=== PATIENT | male | born 1995 | race Caucasian/White ===

== ENCOUNTER 2020-08-25 11:00 | Emergency (ER) | payer BC ==
[2020-08-25] MEDS ORDERED: Cyclobenzaprine 10 MG Tab PO ONE (11:24)
[2020-08-25] MEDS ORDERED: Ketorolac 60 MG/2 ML SDV IM ONE (11:24)
--- NOTE | 2020-08-25 12:06 | CR ---
Lumbar spine: AP and lateral views of the lumbar spine were obtained. Comparison: No prior lumbar spine imaging is available. Vertebral body heights and disc spaces are maintained. Pedicles are intact. Visualized transverse and spinous processes are intact. Sacroiliac joints are within normal limits. Impression: 1. Nothing acute is seen on 2 view lumbar spine study. Diagnostic code #1
--- NOTE | 2020-08-25 12:41 | EDM.PDOC ---
ED HPI GENERAL MEDICAL PROBLEM - General Chief Complaint: Back Pain or Injury Stated Complaint: [facility] Time Seen by Provider: 08/25/20 11:06 Source of Information: Reports: Patient, RN Notes Reviewed History Limitations: Reports: No Limitations - History of Present Illness INITIAL COMMENTS - FREE TEXT/NARRATIVE: Patient is a 25-year-old male presenting to the emergency department with complaints of back spasms. He reports that yesterday he was doing squats at the gym and his third rep he explains a sharp stabbing pain in his back. He is unable to walk upright without having significant spasms in his back. Denies any history of chronic back pain. He received 1 mg of Dilaudid in route by [facility] and this did help his pain. Treatments [facility]: Reports: IV/IO, Other Medication(s) Other Treatments [facility]: 2 doses of 0.5mg IV dilaudid given by EMS [facility], 1mg PO ativan taken yesterda Lower Back Pain Score (Numeric/FACES): 4 - Related Data Allergies Allergy/AdvReac Type Severity Reaction Status Date / Time No Known Allergies Allergy Verified 08/25/20 11:12 Home Meds: Home Meds Cyclobenzaprine [Flexeril] 10 mg PO TID PRN #10 tab 08/25/20 [Rx] Naproxen [Naprosyn] 500 mg PO Q12HR 5 Days #10 tab 08/25/20 [Rx] Past Medical History Gastrointestinal History: Reports: Gastritis Neurological History: Reports: Concussion, Headaches, Chronic Psychiatric History: Reports: Addiction, Depression - Past Surgical History HEENT Surgical History: Reports: Oral Surgery Social & Family History - Tobacco Use Tobacco Use Status *Q: Current Every Day Tobacco User Years of Tobacco use: 5 Packs/Tins Daily: 1 - Caffeine Use Caffeine Use: Reports: Energy Drinks, Soda - Recreational Drug Use Recreational Drug Use: No ED ROS GENERAL - Review of Systems Review Of Systems: Comprehensive ROS is negative, except as noted in HPI. ED EXAM,LOWER BACK PAIN/INJURY - Physical Exam Exam: See Below Exam Limited By: No Limitations General Appearance: Alert, WD/WN, No Apparent Distress Respiratory/Chest: No Respiratory Distress, Lungs Clear, Normal Breath Sounds, No Accessory Muscle Use, Chest Non-Tender Cardiovascular: Normal Peripheral Pulses, Regular Rate, Rhythm, No Edema, No Gallop, No JVD, No Murmur, No Rub Back Exam: Normal Inspection, Full Range of Motion. No: Muscle Spasm, Paraspinal Tenderness, Vertebral Tenderness Neurological: Alert, Normal Mood/Affect, Normal Dorsiflexion, CN II-XII Intact, Normal Plantar Flexion, Normal Reflexes, No Motor/Sensory Deficits, Oriented x 3 Psychiatric: Normal Affect, Normal Mood Course - Vital Signs Last Recorded V/S: Last Vital Signs Temp 97.7 F 08/25/20 11:05 Pulse 90 08/25/20 11:05 Resp 14 08/25/20 11:05 BP 124/73 08/25/20 11:05 Pulse Ox 100 08/25/20 11:05 - Orders/Labs/Meds Meds: Medications Discontinued Medications Generic Name Dose Route Start Last Admin Trade Name [place] PRN Reason Stop Dose Admin Cyclobenzaprine HCl 10 mg 08/25/20 11:24 08/25/20 11:43 Cyclobenzaprine 10 Mg Tab PO 08/25/20 11:25 10 mg ONETIME ONE Administration Ketorolac Tromethamine 60 mg 08/25/20 11:24 08/25/20 11:45 Ketorolac 60 Mg/2 Ml Sdv IM 08/25/20 11:25 60 mg ONETIME ONE Administration - Re-Assessments/Exams Free Text/Narrative Re-Assessment/Exam: Patient is a 25-year-old male presenting to the emergency department with complaints of back spasms after injuring himself as "doing squats at the gym yesterday. He got 1 mg of Dilaudid in route by ambulance. On exam, he has no vertebral tenderness or paraspinal tenderness. He cannot localize an area that is tender but states that when he moves he experiences spasms. I have ordered Toradol 60 mg IM and Flexeril 10 mg orally. Ordered lumbar x-rays. 08/25/20 12:36 Patient is feeling much better after the medications. We will discharge him home with prescription for Naprosyn and Flexeril. Will write note off from work till Monday. Discharge instructions as documented. 08/25/20 13:01 Patient is requesting a walker to help with mobility at home. One will be provided. Departure - Departure Time of Disposition: 12:41 Disposition: Home, Self-Care 01 Condition: Good Clinical Impression: Back muscle spasm - Discharge Information *PRESCRIPTION DRUG MONITORING PROGRAM REVIEWED*: No *COPY OF PRESCRIPTION DRUG MONITORING REPORT IN PATIENT SURINDER: No Prescriptions: Cyclobenzaprine [Flexeril] 10 mg PO TID PRN #10 tab PRN Reason: Muscle Spasm Naproxen [Naprosyn] 500 mg PO Q12HR 5 Days #10 tab Instructions: Muscle Cramps and Spasms Referrals: PCP,None [Primary Care Provider] - Forms: ED Department Discharge, ED Return to Work/School Form Additional Instructions: You were seen in the emergency department today for back spasms after injuring your back at the gym yesterday. You received Dilaudid in route by ambulance. While in the ER, you received Flexeril and Toradol. X-rays of your back were completed showed no abnormalities. You have likely experiencing a muscle strain. Recommend that you rest and apply heat to your back intermittently. Do gentle stretching exercises. Use the medications as prescribed. If symptoms do not improve in the next week, recommend follow-up in the clinic. Return to ER as needed. Sepsis Event Note (ED) - Evaluation Sepsis Screening Result: No Definite Risk - Focused Exam Vital Signs: Vital Signs Temp Pulse Resp BP Pulse Ox 08/25/20 11:05 97.7 F 90 14 124/73 100
== END 2020-08-25 13:00 | disposition home or self-care (01) ==
LOC: JD.ED 11:00
DX: M62.830 Muscle spasm of back (principal); Z72.0 Tobacco use
CPT/HCPCS: 72100; 96372; 99284; A9270; J1885; 99283